=== PATIENT | male | born 1965 | race Caucasian/White ===

== ENCOUNTER 2018-06-10 07:13 | Day surgery (SDC) | payer OTHER ==
[2018-06-10] MEDS ORDERED: FENTAnyl 50 MCG/ML VIAL (09:21)
[2018-06-10] MEDS ORDERED: NEOSTIGMINE 3 MG/3 ML SYRINGE (09:21)
[2018-06-10] MEDS ORDERED: ROCURONIUM 50 MG INJ (09:21)
[2018-06-10] MEDS ORDERED: GLYCOPYRROLATE 0.4 MG INJ (09:21)
[2018-06-10] MEDS ORDERED: LIDOCAINE 2% (SDV) 5 ML INJ (09:21)
[2018-06-10] MEDS ORDERED: MIDAZOLAM 1 MG/ML 2 ML INJ (09:21)
[2018-06-10] MEDS ORDERED: PROPOFOL 20 ML (09:21)
[2018-06-10] MEDS ORDERED: DEXAMETHASONE 4 MG/ML 1 ML INJ (09:22)
[2018-06-10] MEDS ORDERED: ONDANSETRON 4 MG INJ (09:22)
[2018-06-10] MEDS ORDERED: SUCCINYLCHOLINE CHLORIDE 100 MG/5 ML SYG IV (09:25)
[2018-06-10] MEDS ORDERED: MIDAZOLAM 1 MG/ML 2 ML INJ IV (09:30)
[2018-06-10] MEDS ORDERED: ATROPINE 1 MG/10 ML SYRINGE IV (09:30)
[2018-06-10] MEDS ORDERED: HYDROmorphONE 1 MG/5 ML IV SYRINGE IV ×3 (09:30)
[2018-06-10] MEDS ORDERED: hydrALAzine 20 MG INJ IV (09:30)
[2018-06-10] MEDS ORDERED: DIPHENHYDRAMINE 50 MG INJ IV (09:30)
[2018-06-10] MEDS ORDERED: ONDANSETRON 4 MG INJ IV ×2 (09:30→11:00)
[2018-06-10] MEDS ORDERED: MEPERIDINE 25 MG INJ IV (09:30)
[2018-06-10] MEDS ORDERED: FENTAnyl 50 MCG/ML VIAL IV ×2 (09:30)
[2018-06-10] MEDS ORDERED: OXYCODONE/ACETAMINOPHEN (5/325) TAB PO ×2 (09:30)
[2018-06-10] MEDS ORDERED: LABETALOL HCL 20MG INJ IV (09:30)
[2018-06-10] MEDS ORDERED: morphine (1 MG/ML) 10ML SYRINGE IV ×3 (09:30)
[2018-06-10] MEDS ORDERED: EPHEDrine SULFATE 50 MG/5 ML SYG IV (09:30)
[2018-06-10] MEDS: LIDOCAINE 1%/EPI 30 ML INJ (10:34)
[2018-06-10] MEDS: BUPIVACAINE 0.25% (MPF) 30 ML INJ (10:35)
[2018-06-10] MEDS ORDERED: SOD CHLORIDE 0.9% 1,000 ML IV (11:00)
[2018-06-10] MEDS ORDERED: IBUPROFEN 600 MG TAB PO (11:00)
[2018-06-10] MEDS ORDERED: CEFAZOLIN 2 GM/50 ML (PMX) 50 ML IVPB (11:00)
== END 2018-06-10 12:45 | disposition home or self-care (01) ==
LOC: SDS 07:13
DX: L90.5 Scar conditions and fibrosis of skin (principal)
CPT/HCPCS: 11401; 88307